=== PATIENT | female | born 1960 | race African-American/Black ===

== ENCOUNTER 2020-07-25 12:29 | Emergency (ER) | payer OTHER ==
[2020-07-25] MEDS ORDERED: MAG HYDROX/AL HYDROX/SIMETH -MYLANTA- ORAL SUSPENSION PO ONE (12:50)
[2020-07-25] MEDS ORDERED: FAMOTIDINE 20 MG TABLET PO ONE (12:50)
[2020-07-25] MEDS ORDERED: SODIUM CHLORIDE 0.9% 500 ML INFUS.BAG IV ONE (12:52)
[2020-07-25 13:09] LABS: BASO % 0.7 % (0-2.0); EOS % 1.5 % (0-4.5); HEMATOCRIT 38.2 % (32.4-45.2); HEMOGLOBIN 12.7 GM/dL (10.7-15.3); LYMPH % 38.8 % (8-40); MCH 31.6 pg (25.7-33.7); MCHC 33.3 g/dl (32.0-36.0); MEAN PLT VOLUME 8.1 fl (7.5-11.1); MONO % 8.8 % (3.8-10.2); NEUT % 50.2 % (42.8-82.8); PLATELET COUNT 250 K/MM3 (134-434); RBC 4.03 M/mm3 (3.60-5.2); RDW 14.2 % (11.6-15.6); WHITE BLOOD COUNT 3.7 K/mm3 (4.0-10.0)
[2020-07-25 13:11] VITALS: BMI 31.4
[2020-07-25] MEDS ORDERED: FAMOTIDINE 20 MG/50 ML IVPB 20 MG/50 ML MG IVPB ONE (13:13)
[2020-07-25] MEDS ORDERED: MAG HYDROX/AL HYDROX/SIMETH 30 ML UNIT-DOSE CUP ONE (13:13)
[2020-07-25 13:26] LABS: CHLORIDE 107 mmol/L (98-107); POTASSIUM 4.2 mmol/L (3.5-5.1); SODIUM 139 mmol/L (136-145)
[2020-07-25 13:30] LABS: CALCIUM 8.8 mg/dL (8.5-10.1)
[2020-07-25 13:31] LABS: ALBUMIN 3.7 g/dl (3.4-5.0); ANION GAP 5 MMOL/L (8-16); BLOOD UREA NITROGEN 18.4 mg/dL (7-18); CO2 27 mmol/L (21-32); GLUCOSE,RANDOM 107 mg/dL (74-106); LIPASE 161 U/L (73-393)
[2020-07-25 13:33] LABS: CREATININE 0.6 mg/dL (0.55-1.3); SGOT/AST 18 U/L (15-37); SGPT/ALT 24 U/L (13-61)
[2020-07-25 13:35] LABS: BILIRUBIN,TOTAL 0.4 mg/dL (0.2-1)
[2020-07-25 13:36] LABS: ALK PHOS 71 U/L (45-117); TOT PROT 6.9 g/dl (6.4-8.2)
[2020-07-25 17:15] VITALS: BP 125/88; PULSE 66; TEMP 97.9
== END 2020-07-25 18:56 | disposition home or self-care (01) ==
LOC: JER 12:29
DX: R11.2 Nausea with vomiting, unspecified (principal)
CPT/HCPCS: 36415; 71045-TC-FY; 76705-TC; 80053; 82550; 83605; 83690; 84484; 85025; 93005; 93010; 99285-25